=== PATIENT | female | born 1985 | race Caucasian/White ===

== ENCOUNTER 2021-09-11 09:31 | Emergency (ER) | payer OTHER, MEDICAID ==
[~2021-09-11] VITALS: Ht 172.7 cm; Wt 64.5 kg
[~2021-09-11 09:31] MED LIST: MEDROL 4MG DOSPA4 MG PO; MOBIC15 MG PO; PERCOCET 325 MG1 TA2 PO
[2021-09-11 09:48] VITALS: TEMP 98.1
[2021-09-11] MEDS ORDERED: NORCO 325 MG-51 TAB PO (10:24)
[2021-09-11] MEDS ORDERED: MEDROL 4MG DOSPA4 MG PO (10:25)
[2021-09-11 10:48] VITALS: BP 150/83; PULSE 73
== END 2021-09-11 10:48 | disposition home or self-care (01) ==
LOC: COL.ER 09:31
DX: M25.552 Pain in left hip (principal); Z87.39 Personal history of other diseases of the musculoskeletal system and connective tissue; Z28.310 Unvaccinated for COVID-19
CPT/HCPCS: J3010